=== PATIENT | male | born 1955 | race Caucasian/White ===

== ENCOUNTER 2024-12-29 21:31 | Emergency (ER) | payer MEDICARE ==
[~2024-12-29] VITALS: Ht 182.9 cm; Wt 90.0 kg
[~2024-12-29 21:31] MED LIST: NAPROXEN500 MG PO
[2024-12-29] MEDS ORDERED: B121000 MC1 PO (21:48)
[2024-12-29] MEDS ORDERED: ALLERGY RELIEF10 MG PO (21:48)
[2024-12-29] MEDS ORDERED: BAYER ASPIRIN E81 MG PO (21:49)
[2024-12-29] MEDS ORDERED: D3250 MCG PO (21:49)
[2024-12-29] MEDS ORDERED: FUROSEMIDE20 MG PO (21:50)
[2024-12-29] MEDS ORDERED: FARXIGA10 MG PO (21:50)
[2024-12-29] MEDS ORDERED: GLIMEPIRIDE2 MG PO (21:50)
[2024-12-29] MEDS ORDERED: TOPROL XL25 M1 PO (21:51)
[2024-12-29] MEDS ORDERED: LANTUS100 UNIT SC (21:51)
[2024-12-29] MEDS ORDERED: METFORMIN500 M2 PO (21:51)
[2024-12-29] MEDS ORDERED: BENFOTIAMINE PO (21:52)
[2024-12-29] MEDS ORDERED: ONE A DAY MENS PO (21:53)
[2024-12-29] MEDS ORDERED: ALTACE10 MG PO (21:54)
[2024-12-29] MEDS ORDERED: OZEMPIC2 MG IJ (21:54)
[2024-12-29] MEDS ORDERED: ROSUVASTATIN CAL5 MG PO (21:55)
[2024-12-29] MEDS ORDERED: SODIUM CHLORIDE 0.9% 1,000 ML IV ONE (22:00)
[2024-12-29 22:29] LABS: BASO% 0.4 % (0-3); EOS% 2.5 % (0-8); HEMATOCRIT 45.4 % (39.0-50.0); HEMOGLOBIN 15.1 g/dl (14.0-18.0); IMMATURE GRANULOCYTES 0.1 % (0.0-5.0); MEAN CELL VOLUME 96.4 fL CALC (80.0-100.0); MEAN CORPUSCULAR HGB 32.1 pG CALC (26.0-32.0); MEAN CORPUSCULAR HGB CONC 33.3 g/dL CAL (32.0-36.0); MONO% 9.9 % (2-13); NEUT# 5.9 thou/uL (1.82-7.42); NEUT% 50.1 % (42-76); RED BLOOD COUNT 4.71 mill/uL (4.70-6.10); RED CELL DISTRI WIDTH 13.8 % (11.5-15.5)
[2024-12-29 22:40] LABS: ALBUMIN 4.3 g/dL (3.2-5.0); BILIRUBIN, TOTAL 1.1 mg/dL (0.2-1.3); CREATININE 1.2 mg/dL (0.7-1.3); POTASSIUM 4.5 mmol/l (3.5-5.1); TOTAL PROTEIN 7.8 g/dL (6.3-8.2)
[2024-12-29 23:22] LABS: URINE BILIRUBIN - DIPSTICK Negative (NEGATIVE); URINE BLOOD DIPSTICK Large (NEGATIVE); URINE GLUCOSE - DIPSTICK >=1000 mg/dL (NEGATIVE); URINE KETONE Negative (NEGATIVE); URINE LEUK ESTERASE Negative (NEGATIVE); URINE NITRITE - DIPSTICK Negative (Negative); URINE PH 5.5 (4.5-8.0); URINE PROTEIN - DIPSTICK Negative (NEG-TRACE); URINE UROBILINOGEN - DIPSTICK 0.2 E.U./dL (0.2)
[2024-12-29 23:23] LABS: URINE COLOR Yellow
[2024-12-29 23:29] LABS: URINE MUCUS RARE hpf (NONE-FEW); URINE RBC 50-100 RBC/hpf (0-5)
[2024-12-30 00:06] VITALS: BP 144/76
== END 2024-12-30 00:10 | disposition home or self-care (01) ==
LOC: ED 21:31
PROVIDERS: Emergency Medicine
DX: R31.0 Gross hematuria (principal); I10 Essential (primary) hypertension; E11.9 Type 2 diabetes mellitus without complications; E78.5 Hyperlipidemia, unspecified; I42.9 Cardiomyopathy, unspecified; Z88.2 Allergy status to sulfonamides; Z79.4 Long term (current) use of insulin; Z79.84 Long term (current) use of oral hypoglycemic drugs